=== PATIENT | female | born 1990 | race Asian ===

== ENCOUNTER → 2019-09-25 11:58 | Outpatient (CLI) | payer OTHER, SELFPAY ==
[2019-09-25 13:32] LABS: Add Manual Diff / Slide Review NO; Basophils Absolute Auto 0 /uL (0-100); Basophils Percent Auto 0.4 % (0-2); Eosinophils Absolute Auto 200 /uL (0-450); Eosinophils Percent Auto 1.9 % (2-4); Hematocrit 37.9 % (36-46); Hemoglobin 13.1 g/dL (12.0-16.0); Lymphocytes Absolute Auto 1600 /uL (1100-4500); Lymphocytes Percent Auto 19.2 % (25-40); Mean Corpuscular HGB Conc 34.6 % (30-36); Mean Corpuscular Hemoglobin 30.6 PG (26-34); Mean Corpuscular Volume 88.6 fL (80-100); Monocytes Absolute Auto 500 /uL (0-900); Neutrophils Absolute Auto 6000 /uL (1500-7000); Neutrophils Percent Auto 72.5 % (50-75); Platelet Count 213 X10^3/uL (150-400); Red Blood Cell Count 4.28 X10^6/uL (4.0-5.2); Red Cell Distribution Width 13.2 % (11.6-14.8); White Blood Cell Count 8.3 X10^3/uL (4.5-11.0)
[2019-09-26 06:12] LABS: RPR Screen Non Reactive (Non Reactive)
[2019-09-26 11:09] LABS: Varicella IgG Antibody 554 index (Immune >165)
[2019-09-26 18:34] LABS: HIV 1 & 2 Ab/Ag 4th Gen Combo NEGATIVE (NEGATIVE); Hep C Virus Ab w/Reflex Quant NEGATIVE s/c (NEGATIVE); Hepatitis B Surface Antigen NEGATIVE s/c (NEGATIVE); Rubella Antibody IgG 44.6 IU/mL (>15)
== END ==
PROVIDERS: PCP Family Medicine; Referring Provider Obstetrics & Gynecology; Visit Provider Obstetrics & Gynecology
DX: Z34.81 Encounter for supervision of other normal pregnancy, first trimester (principal); Z36.0 Encounter for antenatal screening for chromosomal anomalies; Z3A.11 11 weeks gestation of pregnancy
CPT/HCPCS: 36415; 80055; 84163; 84702; 86787; 86803; 86850; 86900; 86901; 87389

== ENCOUNTER → 2019-10-30 14:39 | Outpatient (CLI) | payer OTHER, SELFPAY ==
[2019-10-30 16:37] LABS: Appearance Urine UA CLEAR; Bilirubin Urine UA NEGATIVE (NEGATIVE); Color Urine UA YELLOW; Glucose Urine UA NEGATIVE (Negative); Ketones Urine UA NEGATIVE (NEGATIVE); Leukocyte Esterase Urine UA NEGATIVE (NEGATIVE); Nitrite Urine UA NEGATIVE (Negative); Occult Blood Urine UA NEGATIVE (Negative); Protein Urine UA NEGATIVE (Negative); Urobilinogen Urine UA 0.2 E.U./dL (0.2)
[2019-10-30 16:38] LABS: pH Urine UA 7.5 (4.5-8.0)
[2019-11-18 20:30] LABS: Sequential Screen 2nd Trimeste SEE SEPARATE REPORT
== END ==
PROVIDERS: PCP Family Medicine; Referring Provider Obstetrics & Gynecology; Visit Provider Obstetrics & Gynecology
DX: Z34.91 Encounter for supervision of normal pregnancy, unspecified, first trimester (principal); Z34.82 Encounter for supervision of other normal pregnancy, second trimester; Z3A.16 16 weeks gestation of pregnancy
CPT/HCPCS: 36415; 81003; 82105; 82677; 84163; 84702; 86336; 87086

== ENCOUNTER → 2019-11-27 12:17 | Outpatient (CLI) | payer OTHER, SELFPAY ==
--- NOTE | 2019-11-27 12:18 | DI.US.S_ITS ---
PROCEDURE: US OB >= 14 WEEKS FETUS INDICATIONS: ANATOMY OUTSIDE/PRIOR DATING DATA: Last menstrual period (LMP): 07/09/19. LMP-based estimated date of delivery (KATIANA): 04/14/20 . First dating scan (date and location): 08/28/19 . Estimated date of delivery (KATIANA) from first dating scan: 04/12/20 . TECHNIQUE: Real-time scanning was performed of the fetus, with image documentation and biometric measurements. Endovaginal scanning: Not needed COMPARISON: None. FINDINGS: General: A single living intrauterine gestation is present. Presentation: Transverse head left, converting to breech.. Placenta: Placental position is anterior , without previa. Amniotic fluid index: 17.4 cm, normal range is 5-24 cm. heart rate: 145 beats per minute. Maternal cervical canal: 4.1 cm long. Normal lower limit is 2.5 cm. biometrics: Biparietal diameter: 4.5 cm, 19 weeks 4 days Head circumference: 17.2 cm, 19 weeks 5 days Abdominal circumference: 15.4 cm, 20 weeks 4 days Femur length: 3.3 cm, 20 weeks 1 day Estimated gestational age from initial scan: 20 weeks 3 days Composite gestational age from present scan: 20 weeks 0 days Estimated weight and percentile: 346 g, 39th percentile Measurement variability for biometric dating: +/- 7 days from 14 weeks to 15 weeks 6 days gestation, +/- 10 days from 16 weeks to 21 weeks 6 days gestation, +/- 2 weeks from 22 weeks to 27 weeks 6 days gestation, +/- 3 weeks for 28 weeks gestation or later. weight reference: 4500 g or EFW >90/95% is considered macrosomia or large for gestational age. EFW <10% is small for gestational age. EFW 5% or less is considered intra-uterine growth restriction. Anatomic survey: Neuro: Ventricles are non-dilated at less than 10 mm. Cisterna magna is normal at 3-11 mm. Cerebellum is normal in size and morphology. Nuchal skin fold: Normal at less than 6 mm between 14-21 weeks gestational age. Face: Nose and lips, facial profile are normal. Spine: No evidence for spina bifida. Heart: 4-chambered heart is present, with normal ventricular outflow tracts. Diaphragm: Diaphragm is intact. Stomach: Left-sided stomach is present. Kidneys: No hydronephrosis. Normal is less than 5 mm in 2nd trimester, less than 7 mm in 3rd trimester. Cord: 3-vessel cord has orthotopic insertion. Bladder: Normal in size. Extremities: All 4 extremities identified. IMPRESSION: 20 week 0 days gestational age, appropriate interval growth, no anomaly seen, delivery date projected to be centered on 04/12/20. Dictated by: Antione Roger M.D. on 11/27/2019 at 15:10 Approved by: Antione Roger M.D. on 11/27/2019 at 15:13
== END ==
PROVIDERS: PCP Family Medicine; Referring Provider Obstetrics & Gynecology; Visit Provider Obstetrics & Gynecology
DX: Z34.82 Encounter for supervision of other normal pregnancy, second trimester (principal); Z3A.20 20 weeks gestation of pregnancy
CPT/HCPCS: 76811

== ENCOUNTER → 2020-01-08 12:20 | Outpatient (CLI) | payer OTHER, SELFPAY ==
[2020-01-08 14:28] LABS: Hematocrit 32.9 % (36-46); Hemoglobin 11.1 g/dL (12.0-16.0)
[2020-01-08 14:57] LABS: GTT (PREG) 1 Hour PP 50gm Dose 130 mg/dL (76-139)
== END ==
PROVIDERS: PCP Family Medicine; Referring Provider Obstetrics & Gynecology; Visit Provider Obstetrics & Gynecology
DX: Z34.82 Encounter for supervision of other normal pregnancy, second trimester (principal)
CPT/HCPCS: 36415; 82950; 85014; 85018

== ENCOUNTER → 2020-02-01 13:36 | Outpatient (CLI) | payer OTHER, SELFPAY ==
[2020-02-02 04:08] LABS: Hepatitis B Surf AB Quant >1000.0 mIU/mL (Immunity>9.9)
== END ==
PROVIDERS: PCP Family Medicine; Referring Provider Family Medicine; Visit Provider Family Medicine
DX: Z01.84 Encounter for antibody response examination (principal)
CPT/HCPCS: 36415; 86706

== ENCOUNTER 2020-03-15 18:01 | Outpatient (CLI) | payer OTHER, SELFPAY | END 2020-03-15 18:50 | disposition home or self-care (01) | LOC: LABOR 18:45 → OB 03-17 08:46 | PROVIDERS: PCP Family Medicine; Referring Provider Obstetrics & Gynecology; Visit Provider Obstetrics & Gynecology | DX: O47.03 False labor before 37 completed weeks of gestation, third trimester (principal); Z3A.35 35 weeks gestation of pregnancy | CPT/HCPCS: 59025; G0378; G0379 ==

== ENCOUNTER → 2020-03-18 15:21 | Outpatient (CLI) | payer OTHER, SELFPAY ==
[2020-03-19 15:44] LABS: Strep Grp B PCR NEG for Grp B Strep
== END ==
PROVIDERS: PCP Family Medicine; Visit Provider Obstetrics & Gynecology
DX: Z34.83 Encounter for supervision of other normal pregnancy, third trimester (principal); Z3A.36 36 weeks gestation of pregnancy
CPT/HCPCS: 87653

== ENCOUNTER 2020-04-10 06:35 | Inpatient (IN) | payer OTHER, SELFPAY ==
[2020-04-10] MEDS: LACTATED RINGERS 1,000 ML 100 ML IV (07:00)
[2020-04-10] MEDS: fentaNYL 100 MCG/2 ML INJ (07:10)
[2020-04-10 07:15] LABS: Add Manual Diff / Slide Review NO; Basophils Absolute Auto 0 /uL (0-100); Basophils Percent Auto 0.4 % (0-2); Eosinophils Absolute Auto 100 /uL (0-450); Eosinophils Percent Auto 0.7 % (2-4); Hematocrit 38.6 % (36-46); Hemoglobin 12.7 g/dL (12.0-16.0); Lymphocytes Absolute Auto 1300 /uL (1100-4500); Lymphocytes Percent Auto 10.2 % (25-40); Mean Corpuscular HGB Conc 32.8 % (30-36); Mean Corpuscular Hemoglobin 29.4 PG (26-34); Mean Corpuscular Volume 89.6 fL (80-100); Monocytes Absolute Auto 1000 /uL (0-900); Monocytes Percent Auto 7.5 % (3-14); Neutrophils Absolute Auto 10800 /uL (1500-7000); Neutrophils Percent Auto 81.2 % (50-75); Platelet Count 190 X10^3/uL (150-400); Red Blood Cell Count 4.31 X10^6/uL (4.0-5.2); Red Cell Distribution Width 13.5 % (11.6-14.8); White Blood Cell Count 13.2 X10^3/uL (4.5-11.0)
[2020-04-10 07:22] LABS: COVID19 -Nasal RAPID Negative (Negative)
[2020-04-10 09:14] VITALS: BP 106/60
--- NOTE | 2020-04-10 10:00 | PM.OBHP.1 ---
OB HPI Date/Time Date of admission: 04/10/20 Date Patient Seen: 04/10/20 Time Patient Seen: 08:40 History of Present Condition Chief complaint: LABOR : 2 Para: 1 Estimated Date of Delivery: 04/14/20 Estimated Gestational Age (weeks): 39.3 Narrative: Meaghan Ortega is a 29 year old female @ 39wks 2 days by LMP and early US who presents for evaluation of labor. Was graham all night, but able to sleep until they became strong at 0300. Now breathing through strong contractions Q3-5 minutes and having some bloody show. Noticed leaking of fluid @ [address] here. +FM. History of Present care: good care, initiated at week # (11), number of visits (11) and pounds weight gain (33) Dating criteria: LMP confirmed by 1st trimester US Ultrasounds: normal mid trimester US Obstetrical complications: none Preadmission Labs Blood type: AB (+) positive -: Antibody screen: negative, GBS status: negative, HBsAG: negative, HIV: negative and RPR/VDLR: negative -: Rubella: immune and Varicella: immune HCT: 38.6 HCAB: negative Sequential screen: Negative/normal 1 hr GTT: 130 Prior (ies) History: 10/05/12: VAVB @ 39.6, 24hr labor, female, 5#9oz, epidural, no complications Evaluation Evaluation Baseline heart rate: 130 Variability: Average (6-10) monitor accelerations: Present monitor decelerations: Absent Contraction Frequency (minutes): 4 Uterine Contraction Intensity: Moderate Category of Tracing: Reactive Status: Category l Cervical dilation (cm): 3 Cervical effacement (%): 80 station: 0 Laboratory results: Laboratory Tests 04/10/20 04/10/20 04/10/20 07:00 07:00 07:00 WBC 13.2 H RBC 4.31 Hgb 12.7 Hct 38.6 MCV 89.6 MCH 29.4 MCHC 32.8 RDW 13.5 Plt Count 190 Neut % (Auto) 81.2 H Lymph % (Auto) 10.2 L [place] % (Auto) 7.5 Eos % (Auto) 0.7 L Baso % (Auto) 0.4 Neut # (Auto) 66149 H Lymph # (Auto) 1300 [place] # (Auto) 1000 H Eos # (Auto) 100 Baso # (Auto) 0 SARS-CoV-2 (PCR) Negative Blood Type AB Positive Antibody Screen Negative Comments: Gross ROM PFSH Medical History Abnormal Pap smear of cervix Anxiety HPV (human papilloma virus) infection Left axillary pain (spontaneous vaginal delivery) (~10/05/12) Surgical History H/O colposcopy with cervical biopsy (~2016) [place] teeth extracted (~2010) Family History Mother Diabetes mellitus Hypertension Alcoholism Psoriasis Father Hyperlipidemia Grandfather Unknown whether patient has any health problems Family estrangement Grandmother Unknown whether patient has any health problems Family estrangement Grandmother Cancer Lung cancer Grandfather Family estrangement Unknown whether patient has any health problems Social History marital status: number of children: 1 household members: spouse and children pets and animals: Yes (X 3 dogs) education level: high school ([employer] for [employer] ) occupational status: employed 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 Smoking Status: Never smoker second hand exposure: No alcohol intake: former (pre- : social ) substance use type: does not use Meds Home Medications and Allergies Home Medications Medication Instructions Recorded Confirmed Type prenat.vits,kimberlee,[id number] 1 tab PO DAILY #90 tab 11/09/19 Rx Allergies Allergy/AdvReac Type Severity Reaction Status Date / Time No Known Allergies Allergy Uncoded 09/22/19 13:04 Review of Systems Review of Systems ROS: Yes All systems reviewed with the patient and are negative except as otherwise documented Exam Vital Signs (past 8 hours): - 04/10/20 09:14 Blood Pressure 106/60 HR-79bpm, T36.2C Temporal Resp Effort & Inspection: normal respiratory effort Auscultation: clear to auscultation bilaterally Cardio Rate: regular rate Rhythm: regular rhythm Heart Sounds: S1 normal and S2 normal Objective Labs Result Diagrams: 04/10/20 07:00 Labs: Laboratory Results - last 24 hr 04/10/20 04/10/20 04/10/20 07:00 07:00 07:00 WBC 13.2 H RBC 4.31 Hgb 12.7 Hct 38.6 MCV 89.6 MCH 29.4 MCHC 32.8 RDW 13.5 Plt Count 190 Neut % (Auto) 81.2 H Lymph % (Auto) 10.2 L [place] % (Auto) 7.5 Eos % (Auto) 0.7 L Baso % (Auto) 0.4 Neut # (Auto) 38638 H Lymph # (Auto) 1300 [place] # (Auto) 1000 H Eos # (Auto) 100 Baso # (Auto) 0 SARS-CoV-2 (PCR) Negative Blood Type AB Positive Antibody Screen Negative Assessment and Plan Assessment and Plan Assessment and Plan narrative: A: Term Primipara Active labor SROM x 2 hours without sx of infection No indication for GBS prophylaxis Cat I FHR P: Admit, routine orders. Epidural when requested. Labor support PRN. Will manage labor, then call [facility] for . Time Spent with Patient Total time spent with greater than 50% in coordination of care (as documented) at patient's floor/unit and/or counseling patient:: 15-24 minutes
[2020-04-10] MEDS: ONDANSETRON 4 MG/2 ML INJ IV (11:50)
--- NOTE | 2020-04-10 14:40 | PM.OBPRVD ---
Labor & Delivery Delivery date: 04/10/20 Intrapartal Events: None Cervical ripening method: none Induction method: none Delivery monitor: external FHT and external uterine Route of delivery: (With a mild shoulder dystocia) Episiotomy description: None L&D Laceration Description: None Estimated blood loss (mL): 150 Anesthesia Type: Epidural Complications: Mild shoulder dystocia Narrative: Patient complete and pushed times 48 minutes. At 1423, a live female delivered spontaneously in the KIAN presentation. There was a mild shoulder dystocia that was relieved by placing the patient flat on her back and using Ailyn maneuver. After the shoulders delivered, the infant was placed on mom's abdomen. The cord was double clamped and cut after the cord stopped pulsing. Cord bloods were obtained. Pitocin 10 units was given IM. The placenta delivered intact with a three-vessel cord at 2:28 p.m.. Fundus was massaged to firm. No lacerations were noted. Apgars 9 at 1 minute and 9 at 5 minutes. . Epidural analgesia. Mom and infant stable to recovery. [place] Baby 1: gender: Female Presentation: vertex Position: Right Occiput Anterior Placenta delivery description: Spontaneous Cord Vessel Description: 3 Vessels score (1 min): 9 score (5 min): 9 Plan for aftercare: Routine care
[2020-04-10] MEDS: ACETAMINOPHEN 325 MG TABLET 650 MG PO (19:47)
[2020-04-10] MEDS: IBUPROFEN 600 MG TABLET PO (19:47)
[2020-04-11 06:36] LABS: Hematocrit 34.3 % (36-46); Hemoglobin 11.5 g/dL (12.0-16.0)
--- NOTE | 2020-04-13 17:47 | PM.OBDS.1 ---
Discharge Providers Provider Date of admission: 04/10/20 06:35 Discharge Date: 04/11/20 Primary care physician: Madeline Drake DO Discharge provider: Cherise Mary MD Summary Hospital Course Date Patient Seen: 04/11/20 Time Patient Seen: 07:45 Diagnoses: Thirty-nine weeks gestation Spontaneous vaginal delivery Epidural analgesia Hospital Course: Patient presented in active labor. Artificial rupture membranes was performed. She received an epidural for pain management. She progressed to complete dilation and had a spontaneous vaginal delivery without complication or lacerations. Her course was unremarkable and she was discharged home on day # 1. Peripartum Data Infant Delivery Method: Natural Vaginal Laceration Description: None Episiotomy description: None Procedures: Spontaneous vaginal delivery Artificial rupture of membranes Epidural analgesia complications: none 1: Gender: Female Disposition of : home Status at Discharge Cognitive/behavioral status at discharge: oriented Functional status at discharge: independent ambulation Overall status at discharge: patient is progressing back to baseline Time Spent with Patient Time attestation: Total time spent providing and/or coordinating discharge services: Time spent: Less than 30 minutes Objective Labs Result Diagrams: 04/11/20 06:25 Exam Vital Signs (past 8 hours): Generally: Patient is sitting up in bed, holding infant, no acute distress Lungs: Clear to auscultation bilaterally Cardiovascular: Regular rate and rhythm Fundus: Firm at U -1 Extremities: Negative Homans, no edema Discharge Plan Discharge Plan Patient Disposition: Home Provider Discharge Comment: Call with fever, chills, or bleeding vaginally more than a pad in an hour Ibuprofen 600 mg every 6 hours as needed for cramping Tylenol 650 mg every 6 hours as needed Push oral fluids Discharge orders & Medications Prescriptions: Continued prenat.vits,kimberlee,vmn-wgyf-fgnto Tablet 1 tab PO DAILY Qty: 90 RF: 3 Follow up/Referrals: Lina Monaco MD [Physician] - 6 Weeks (May 24, at 3pm with Dr Monaco) Diet/Activity/Treatments Diet: Regular Activity: Nothing in the vagina for 6 weeks Skin/Wound/Dressing Care Report to your healthcare provider any signs of infection, such as:: chills, fever, increased pain and unusual drainage Visit Report/Discharge Packet Instructions: DI for Labor and Delivery, Vaginal Stand Alone Forms: Discharge: Care Discharge Data Primary Care Provider: Madeline Drake
== END 2020-04-11 14:20 | disposition home or self-care (01) | DRG 807 ==
PROVIDERS: Obstetrics & Gynecology; Admitting Provider Nurse Practitioner Obstetrics & Gynecology; PCP Family Medicine; Referring Provider Nurse Practitioner Obstetrics & Gynecology; Visit Provider Nurse Practitioner Obstetrics & Gynecology
DX: O42.02 Full-term premature rupture of membranes, onset of labor within 24 hours of rupture (principal); Z37.0 Single live birth; O66.0 Obstructed labor due to shoulder dystocia; Z3A.39 39 weeks gestation of pregnancy; Z20.822 Contact with and (suspected) exposure to COVID-19
CPT/HCPCS: 01967; 36415; 59050; 59400; 59409; 85014; 85018; 85025; 86850; 86900; 86901; 87635; C9803; G0379; J2405; J3010

== ENCOUNTER → 2020-11-04 09:26 | Outpatient (CLI) | payer OTHER, SELFPAY ==
[2020-11-09 12:11] LABS: QuantiFERON Mitogen Value >10.00 IU/mL (.); QuantiFERON Nil Value 0.21 IU/mL (.); QuantiFERON TB Gold Plus Positive (Negative); QuantiFERON TB1 Ag Value 1.22 IU/mL (.); QuantiFERON TB2 Ag Value 1.42 IU/mL (.)
== END ==
PROVIDERS: PCP Family Medicine; Referring Provider Family Medicine; Visit Provider Family Medicine
DX: R76.11 Nonspecific reaction to tuberculin skin test without active tuberculosis (principal)
CPT/HCPCS: 36415; 86480

== ENCOUNTER → 2020-11-07 16:56 | Outpatient (CLI) | payer OTHER, SELFPAY ==
--- NOTE | 2020-11-07 16:59 | DI.RAD.S_ITS ---
PROCEDURE: XR CHEST 2V INDICATIONS: positive TB skin test TECHNIQUE: 2 views of the chest were acquired. COMPARISON: None. FINDINGS: Surgical changes and devices: None. Lungs and pleura: Lungs are clear. No pleural effusions or pneumothorax. Mediastinum: Mediastinal contours are normal. Heart size is normal. Bones and chest wall: No suspicious bony abnormalities. Soft tissues appear unremarkable. IMPRESSION: Normal examination. Dictated by: Graciela Sparks MD, PhD on 11/08/2020 at 12:05 Approved by: Graciela Sparks MD, PhD on 11/08/2020 at 12:05
== END ==
PROVIDERS: PCP Family Medicine; Referring Provider Family Medicine; Visit Provider Family Medicine
DX: R76.11 Nonspecific reaction to tuberculin skin test without active tuberculosis (principal)
CPT/HCPCS: 71046

== ENCOUNTER → 2021-01-20 07:18 | Outpatient (CLI) | payer OTHER, SELFPAY ==
[2021-01-20 08:19] LABS: Add Manual Diff / Slide Review NO; Basophils Absolute Auto 100 /uL (0-100); Basophils Percent Auto 0.9 % (0-2); Eosinophils Absolute Auto 200 /uL (0-450); Eosinophils Percent Auto 3.4 % (2-4); Hematocrit 39.9 % (36-46); Hemoglobin 13.8 g/dL (12.0-16.0); Lymphocytes Absolute Auto 1400 /uL (1100-4500); Lymphocytes Percent Auto 24.8 % (25-40); Mean Corpuscular HGB Conc 34.5 % (30-36); Mean Corpuscular Hemoglobin 30.2 PG (26-34); Mean Corpuscular Volume 87.5 fL (80-100); Monocytes Absolute Auto 400 /uL (0-900); Monocytes Percent Auto 6.2 % (3-14); Neutrophils Absolute Auto 3700 /uL (1500-7000); Neutrophils Percent Auto 64.7 % (50-75); Platelet Count 241 X10^3/uL (150-400); Red Blood Cell Count 4.56 X10^6/uL (4.0-5.2); Red Cell Distribution Width 12.6 % (11.6-14.8); White Blood Cell Count 5.8 X10^3/uL (4.5-11.0)
[2021-01-20 08:46] LABS: Alanine Aminotransferase 13 IU/L (<35); Albumin 4.3 g/dL (3.5-5.0); Albumin Globulin Ratio 1.5 (1.0-2.8); Alkaline Phosphatase 50 U/L (38-126); Aspartate Aminotransferase 19 IU/L (14-36); BUN Creatinine Ratio 13.3 (6-22); Bilirubin Total 0.4 mg/dL (0.2-1.3); Blood Urea Nitrogen 8 mg/dL (7-17); Calcium 9.3 mg/dL (8.4-10.2); Carbon Dioxide 25 mmol/L (22-32); Chloride 104 mmol/L (98-107); Estimated Glomerular Filt Rate > 60.0 mL/min (>60); Globulin 2.8 g/dL (1.7-4.1); Glucose 93 mg/dL (70-100); HEMOLYSIS < 15 (0-50); Potassium 4.3 mmol/L (3.4-5.1); Sodium 138 mmol/L (137-145); Total Protein 7.1 g/dL (6.3-8.2)
== END ==
PROVIDERS: PCP Family Medicine; Referring Provider Family Medicine; Visit Provider Family Medicine
DX: R76.11 Nonspecific reaction to tuberculin skin test without active tuberculosis (principal); Z79.899 Other long term (current) drug therapy
CPT/HCPCS: 36415; 80053; 85025

== ENCOUNTER → 2021-01-27 13:22 | Outpatient (CLI) | payer OTHER, SELFPAY ==
[2021-02-01 19:15] LABS: Calprotectin, Stool 30 ug/g (0-120)
== END ==
PROVIDERS: PCP Family Medicine; Referring Provider Family Medicine; Visit Provider Family Medicine
DX: K60.2 Anal fissure, unspecified (principal)
CPT/HCPCS: 83993

== ENCOUNTER → 2021-02-17 15:49 | Outpatient (CLI) | payer OTHER, SELFPAY ==
[2021-02-17 17:11] LABS: Alanine Aminotransferase 14 IU/L (<35); Albumin 4.4 g/dL (3.5-5.0); Albumin Globulin Ratio 1.5 (1.0-2.8); Alkaline Phosphatase 52 U/L (38-126); Aspartate Aminotransferase 20 IU/L (14-36); Bilirubin Total 0.3 mg/dL (0.2-1.3); Blood Urea Nitrogen 7 mg/dL (7-17); Calcium 9.5 mg/dL (8.4-10.2); Carbon Dioxide 29 mmol/L (22-32); Chloride 104 mmol/L (98-107); Estimated Glomerular Filt Rate > 60.0 mL/min (>60); Glucose 112 mg/dL (70-100); HEMOLYSIS < 15 (0-50); Sodium 138 mmol/L (137-145); Total Protein 7.4 g/dL (6.3-8.2)
== END ==
PROVIDERS: PCP Family Medicine; Referring Provider Family Medicine; Visit Provider Family Medicine
DX: R76.12 Nonspecific reaction to cell mediated immunity measurement of gamma interferon antigen response without active tuberculosis (principal)
CPT/HCPCS: 36415; 80053

== ENCOUNTER → 2021-03-13 16:04 | Outpatient (CLI) | payer OTHER, SELFPAY ==
[2021-03-13 16:47] LABS: Add Manual Diff / Slide Review NO; Basophils Absolute Auto 0 /uL (0-100); Eosinophils Absolute Auto 200 /uL (0-450); Eosinophils Percent Auto 6.2 % (2-4); Hematocrit 36.1 % (36-46); Hemoglobin 12.5 g/dL (12.0-16.0); Lymphocytes Absolute Auto 1300 /uL (1100-4500); Lymphocytes Percent Auto 34.6 % (25-40); Mean Corpuscular HGB Conc 34.5 % (30-36); Mean Corpuscular Volume 86.9 fL (80-100); Monocytes Absolute Auto 500 /uL (0-900); Monocytes Percent Auto 13.1 % (3-14); Neutrophils Absolute Auto 1700 /uL (1500-7000); Neutrophils Percent Auto 45.1 % (50-75); Platelet Count 182 X10^3/uL (150-400); Red Blood Cell Count 4.15 X10^6/uL (4.0-5.2); Red Cell Distribution Width 13.1 % (11.6-14.8); White Blood Cell Count 3.7 X10^3/uL (4.5-11.0)
[2021-03-13 18:05] LABS: Alanine Aminotransferase 12 IU/L (<35); Albumin 3.5 g/dL (3.5-5.0); Albumin Globulin Ratio 1.3 (1.0-2.8); Alkaline Phosphatase 39 U/L (38-126); Aspartate Aminotransferase 20 IU/L (14-36); BUN Creatinine Ratio 14.3 (6-22); Bilirubin Total 0.2 mg/dL (0.2-1.3); Blood Urea Nitrogen 8 mg/dL (7-17); Calcium 8.6 mg/dL (8.4-10.2); Carbon Dioxide 31 mmol/L (22-32); Chloride 104 mmol/L (98-107); Estimated Glomerular Filt Rate > 60.0 mL/min (>60); Globulin 2.7 g/dL (1.7-4.1); Glucose 84 mg/dL (70-100); HEMOLYSIS < 15 (0-50); Potassium 3.6 mmol/L (3.4-5.1); Sodium 137 mmol/L (137-145); Total Protein 6.2 g/dL (6.3-8.2)
== END ==
PROVIDERS: PCP Family Medicine; Referring Provider Family Medicine; Visit Provider Family Medicine
DX: R76.12 Nonspecific reaction to cell mediated immunity measurement of gamma interferon antigen response without active tuberculosis (principal); Z79.899 Other long term (current) drug therapy
CPT/HCPCS: 36415; 80053; 85025

== ENCOUNTER → 2021-03-25 09:44 | Outpatient (CLI) | payer OTHER, SELFPAY ==
[2021-03-25 13:08] LABS: Add Manual Diff / Slide Review NO; Basophils Absolute Auto 0 /uL (0-100); Basophils Percent Auto 0.8 % (0-2); Eosinophils Absolute Auto 200 /uL (0-450); Eosinophils Percent Auto 3.3 % (2-4); Hematocrit 38.2 % (36-46); Hemoglobin 13.1 g/dL (12.0-16.0); Lymphocytes Absolute Auto 1500 /uL (1100-4500); Lymphocytes Percent Auto 24.4 % (25-40); Mean Corpuscular HGB Conc 34.3 % (30-36); Mean Corpuscular Volume 87.4 fL (80-100); Monocytes Absolute Auto 600 /uL (0-900); Monocytes Percent Auto 9.4 % (3-14); Neutrophils Absolute Auto 3900 /uL (1500-7000); Neutrophils Percent Auto 62.1 % (50-75); Platelet Count 246 X10^3/uL (150-400); Red Blood Cell Count 4.37 X10^6/uL (4.0-5.2); Red Cell Distribution Width 13.1 % (11.6-14.8); White Blood Cell Count 6.3 X10^3/uL (4.5-11.0)
[2021-03-25 13:30] LABS: Alanine Aminotransferase 14 IU/L (<35); Albumin 4.1 g/dL (3.5-5.0); Albumin Globulin Ratio 1.5 (1.0-2.8); Alkaline Phosphatase 53 U/L (38-126); Aspartate Aminotransferase 19 IU/L (14-36); Bilirubin Total 0.9 mg/dL (0.2-1.3); Bilirubin Unconjugated 1.1 mg/dL (0.0-1.1); Globulin 2.8 g/dL (1.7-4.1); HEMOLYSIS < 15 (0-50); Total Protein 6.9 g/dL (6.3-8.2)
== END ==
PROVIDERS: PCP Family Medicine; Referring Provider Family Medicine; Visit Provider Family Medicine
DX: Z79.899 Other long term (current) drug therapy (principal); D72.819 Decreased white blood cell count, unspecified; R76.12 Nonspecific reaction to cell mediated immunity measurement of gamma interferon antigen response without active tuberculosis
CPT/HCPCS: 36415; 80076; 85025

== ENCOUNTER → 2021-04-29 11:52 | Outpatient (CLI) | payer OTHER, SELFPAY ==
[2021-04-29 12:27] LABS: Add Manual Diff / Slide Review NO; Basophils Absolute Auto 0 /uL (0-100); Basophils Percent Auto 0.6 % (0-2); Eosinophils Absolute Auto 200 /uL (0-450); Eosinophils Percent Auto 2.9 % (2-4); Hematocrit 38.7 % (36-46); Hemoglobin 13.3 g/dL (12.0-16.0); Lymphocytes Absolute Auto 2000 /uL (1100-4500); Lymphocytes Percent Auto 25.5 % (25-40); Mean Corpuscular HGB Conc 34.4 % (30-36); Mean Corpuscular Hemoglobin 29.9 PG (26-34); Mean Corpuscular Volume 86.8 fL (80-100); Monocytes Absolute Auto 600 /uL (0-900); Monocytes Percent Auto 7.8 % (3-14); Neutrophils Absolute Auto 4900 /uL (1500-7000); Neutrophils Percent Auto 63.2 % (50-75); Platelet Count 222 X10^3/uL (150-400); Red Blood Cell Count 4.46 X10^6/uL (4.0-5.2); White Blood Cell Count 7.7 X10^3/uL (4.5-11.0)
[2021-04-29 13:09] LABS: Alanine Aminotransferase 15 IU/L (<35); Albumin 4.3 g/dL (3.5-5.0); Albumin Globulin Ratio 1.4 (1.0-2.8); Alkaline Phosphatase 55 U/L (38-126); Aspartate Aminotransferase 20 IU/L (14-36); Bilirubin Total 0.5 mg/dL (0.2-1.3); Bilirubin Unconjugated 0.5 mg/dL (0.0-1.1); HEMOLYSIS < 15 (0-50); Total Protein 7.3 g/dL (6.3-8.2)
== END ==
PROVIDERS: PCP Family Medicine; Referring Provider Family Medicine; Visit Provider Family Medicine
DX: D72.819 Decreased white blood cell count, unspecified (principal); Z79.899 Other long term (current) drug therapy; R76.12 Nonspecific reaction to cell mediated immunity measurement of gamma interferon antigen response without active tuberculosis
CPT/HCPCS: 36415; 80076; 85025

== ENCOUNTER → 2021-05-31 12:54 | Outpatient (CLI) | payer OTHER, SELFPAY ==
[2021-05-31 14:53] LABS: Free T3, Triiodothyronine Free 3.28 pg/mL (2.77-5.27); Free T4, Direct Thyroxine 0.85 ng/dL (0.78-2.19)
[2021-05-31 15:07] LABS: Thyroid Stimulating Hormone 1.91 uIU/mL (0.47-4.68)
== END ==
PROVIDERS: PCP Family Medicine; Referring Provider Nurse Practitioner; Visit Provider Nurse Practitioner
DX: F41.8 Other specified anxiety disorders (principal); R00.2 Palpitations; L29.0 Pruritus ani
CPT/HCPCS: 36415; 84439; 84443; 84481; 99213

== ENCOUNTER → 2022-05-10 09:00 | Outpatient (CLI) | payer OTHER, SELFPAY ==
[2022-05-10 11:41] LABS: Add Manual Diff / Slide Review NO; Basophils Absolute Auto 100 /uL (0-100); Basophils Percent Auto 1.2 % (0-2); Eosinophils Absolute Auto 200 /uL (0-450); Eosinophils Percent Auto 3.3 % (2-4); Hematocrit 39.5 % (36-46); Hemoglobin 13.2 g/dL (12.0-16.0); Lymphocytes Absolute Auto 1600 /uL (1100-4500); Lymphocytes Percent Auto 26.9 % (25-40); Mean Corpuscular HGB Conc 33.5 % (30-36); Mean Corpuscular Hemoglobin 29.5 PG (26-34); Mean Corpuscular Volume 87.9 fL (80-100); Monocytes Absolute Auto 500 /uL (0-900); Neutrophils Absolute Auto 3600 /uL (1500-7000); Neutrophils Percent Auto 60.6 % (50-75); Platelet Count 232 X10^3/uL (150-400); Red Blood Cell Count 4.49 X10^6/uL (4.0-5.2); Red Cell Distribution Width 12.8 % (11.6-14.8); White Blood Cell Count 5.9 X10^3/uL (4.5-11.0)
[2022-05-10 11:55] LABS: Alanine Aminotransferase 15 IU/L (<35); Albumin 4.4 g/dL (3.5-5.0); Albumin Globulin Ratio 1.4 (1.0-2.8); Alkaline Phosphatase 51 U/L (38-126); Aspartate Aminotransferase 20 IU/L (14-36); BUN Creatinine Ratio 22.2 (6-22); Bilirubin Total 0.4 mg/dL (0.2-1.3); Blood Urea Nitrogen 12 mg/dL (7-17); Carbon Dioxide 27 mmol/L (22-32); Chloride 102 mmol/L (98-107); Estimated Glomerular Filt Rate > 60 mL/min (>60); Globulin 3.1 g/dL (1.7-4.1); Glucose 73 mg/dL (70-100); HEMOLYSIS < 15 (0-50); Potassium 4.5 mmol/L (3.4-5.1); Sodium 138 mmol/L (137-145); Total Protein 7.5 g/dL (6.3-8.2)
[2022-05-10 12:39] LABS: Thyroid Stimulating Hormone 0.253 uIU/mL (0.47-4.68)
== END ==
PROVIDERS: PCP Nurse Practitioner; Referring Provider Surgery; Visit Provider Surgery
DX: L29.0 Pruritus ani (principal)
CPT/HCPCS: 36415; 80053; 84443; 85025

== ENCOUNTER → 2022-05-15 11:27 | Outpatient (CLI) | payer OTHER, SELFPAY | PROVIDERS: PCP Nurse Practitioner; Referring Provider Surgery; Visit Provider Surgery | DX: L29.0 Pruritus ani (principal) | CPT/HCPCS: 87177 ==

== ENCOUNTER → 2022-05-22 09:15 | Outpatient (CLI) | payer OTHER, SELFPAY ==
[2022-05-22 10:12] LABS: Cholesterol 133 mg/dL (140-199); HDL Cholesterol 37 mg/dL (40-60); LDL Cholesterol Calculated 79 mg/dL (<100); Triglycerides 86 mg/dL (35-150)
[2022-05-22 10:26] LABS: Free T3, Triiodothyronine Free 3.17 pg/mL (2.77-5.27); Free T4, Direct Thyroxine 0.89 ng/dL (0.78-2.19)
[2022-05-22 10:40] LABS: Thyroid Stimulating Hormone 1.19 uIU/mL (0.47-4.68)
== END ==
PROVIDERS: PCP Nurse Practitioner; Referring Provider Nurse Practitioner; Visit Provider Nurse Practitioner
DX: Z00.00 Encounter for general adult medical examination without abnormal findings (principal); R79.89 Other specified abnormal findings of blood chemistry
CPT/HCPCS: 36415; 80061; 84439; 84443; 84481

== ENCOUNTER 2022-05-31 09:05 | Day surgery (SDC) | payer OTHER, SELFPAY ==
[2022-05-31] MEDS: LACTATED RINGERS 1,000 ML 84 ML IV (09:22)
[2022-05-31 09:25] VITALS: BP 104/62; PULSE 69; RESP 20; TEMP 36.8; O2SAT 99; BMI 22.1
--- NOTE | 2022-05-31 10:10 | PM.HP.1 ---
History of Present Illness History of Present Illness Date Patient Seen: 05/31/22 Time Patient Seen: 10:10 Chief complaint: SDC Narrative: Meaghan is here for her colonoscopy. She is no significant changes in her health or symptoms since her last office visit. Patient History Medical History (Updated 05/17/22 @ 09:17 by YARI Hinkle) Abnormal Pap smear of cervix Anal fissure Anxiety Depression with anxiety HPV (human papilloma virus) infection Insomnia Left axillary pain Positive QuantiFERON-TB Gold test Prior complicated by SGA (small for gestational age), antepartum (spontaneous vaginal delivery) (~10/05/12) Tonsillith Surgical History H/O colposcopy with cervical biopsy (~2016) [place] teeth extracted (~2010) Family & Social History Family History Mother Diabetes mellitus Hypertension Alcoholism Psoriasis Father Hyperlipidemia Grandfather Unknown whether patient has any health problems Family estrangement Grandmother Unknown whether patient has any health problems Family estrangement Grandmother Cancer Lung cancer Grandfather Family estrangement Unknown whether patient has any health problems Social History: household members spouse,children Tobacco & Substance use: Smoking Status Never smoker alcohol intake former Substance Use Type does not use Meds Home Medications and Allergies Home Medications Medication Instructions Recorded Confirmed Type levonorgestrel 14 mcg/24 hrs (3 intrauterine 01/20/21 04/18/22 History yrs) 13.5 mg intrauterine device propranolol 10 mg tablet See Rx Instructions .Route 04/27/22 05/31/22 Rx .COMPLEX #90 tabs sodium,potassium,mag sulfates 17.5 See Rx Instructions PO .COMPLEX 04/30/22 Rx gram-3.13 gram-1.6 gram oral soln #354 mL (Suprep Bowel Prep Kit) duloxetine 20 mg capsule,delayed 20 mg PO DAILY #90 caps 05/17/22 05/31/22 Rx release Allergies Allergy/AdvReac Type Severity Reaction Status Date / Time No Known Allergies Allergy Uncoded 05/31/22 09:23 Exam Vital Signs (past 8 hours): - 05/31/22 09:25 Temperature 98.3 F Pulse Rate 69 Respiratory Rate 20 Blood Pressure 104/62 Pulse Oximetry 99 Oxygen Delivery Method Room Air Oxygen Delivery Method Room Air Const General: healthy appearing Assessment & Plan Assessment and plan (1) Anal fissure: Status: Resolved Plan Reviewed risks and benefits of colonoscopy she would like to proceed
--- NOTE | 2022-05-31 11:09 | PM.OP.COLON ---
Operative Date/Time/Diagnoses Date of procedure: 05/31/22 Time of procedure: 11:09 Pre-op diagnosis: Pruritus Ani Post-op diagnosis: same Procedure & Clinicians Study performed: Colonoscopy Same procedure as scheduled: Yes Surgeon: Gustavo Wolf Procedure Notes Procedure in detail: Surgeon: Gustavo Wolf MD Anesthesia: Dr. Wyatt Procedure: The patient was brought to the endoscopy suite, placed in left lateral decubitus position. The patient was connected to monitoring devices. A time-out was performed. Sedation was administered. Once the patient was adequately sedated, a digital rectal exam was performed and was normal. The scope was then inserted and advanced to the cecum where the appendiceal orifice was identified and photographed. The scope was then slowly withdrawn over greater than 6 minutes. The mucosa was thoroughly inspected. No abnormalities were seen. The scope was retroflexed in the rectum. No abnormalities were seen. The scope was straightened and removed. The patient was awakened and brought to recovery. Scope withdrawal time: 7 minutes Sedation time: 13 minutes EBL: 0 Findings: Normal colon Post-procedure Disposition: PACU
[2022-05-31 11:10] VITALS: BP 96/65; PULSE 72; RESP 21; TEMP 36.3; O2SAT 99
[2022-05-31 11:15] VITALS: BP 95/59; PULSE 69; RESP 22; O2SAT 98
[2022-05-31 11:21] VITALS: BP 106/65; PULSE 74; RESP 22; O2SAT 98
== END 2022-05-31 11:39 | disposition home or self-care (01) ==
PROVIDERS: PCP Nurse Practitioner; Referring Provider Surgery; Visit Provider Surgery
PROC: 0DJD8ZZ Inspection of Lower Intestinal Tract, Via Natural or Artificial Opening Endoscopic (ICD-10-PCS; CPT 45378; principal; 2022-05-31 10:15)
DX: L29.0 Pruritus ani (principal)
CPT/HCPCS: 45378; J2250; J3010

== ENCOUNTER → 2022-07-03 08:42 | Outpatient (CLI) | payer OTHER, SELFPAY ==
--- NOTE | 2022-07-03 08:43 | DI.US.S_ITS ---
ULTRASOUND OF RIGHT BREAST: 07/03/2022 CLINICAL: Palpable right breast lump. Comparison is made to exam dated: 07/03/2022 mammogram - [facility]. Real-time ultrasound of the right breast was performed. [place] scale images of the real-time examination were reviewed. No significant abnormalities were seen sonographically in the right breast. IMPRESSION: NEGATIVE There is no sonographic evidence of malignancy. There is no abnormality seen in the right breast to correspond with the area of clinical concern and palpable abnormality which likely represent normal fibroglandular tissue, however, recommend clinical follow up for persistent or worsening symptoms, or development of any clinically suspicious findings. Recommend initiating routine screening mammograms at age 40. Findings and recommendations were conveyed to the patient during today's evaluation. This exam was interpreted at Station ID: [id number]. Electronically Signed By: Ilir Brown M.D. aty/:07/03/2022 09:26:02 letter sent: Clinical Evaluation Ultrasound BI-RADS: 1 Negative
--- NOTE | 2022-07-03 08:43 | DI.MG.S_ITS ---
BILATERAL DIGITAL DIAGNOSTIC MAMMOGRAM 3D/2D: 07/03/2022 CLINICAL: Baseline exam. Right breast lump. No prior exams were available for comparison. Both breasts are extremely dense, which lowers the sensitivity of mammography (category d />75% glandular tissue). No significant masses, calcifications, or other findings are seen in either breast. IMPRESSION: INCOMPLETE: NEEDS ADDITIONAL IMAGING EVALUATION There is no abnormality seen in the right breast to correspond with the area of clinical concern and palpable abnormality indicated by triangular marker in the middle depth in the upper outer quadrant, however, an ultrasound is recommended for further evaluation and is scheduled to immediately follow this examination. Based on the Tyrer Cuzick model (a risk assessment model) the patient's lifetime risk is 9.9% and her 10 year risk is 0.5%. According to the ACR, ACS, and NCCN guidelines, an annual breast MRI exam along with mammogram is recommended if the patient's lifetime risk is 20% or greater. This exam was interpreted at Station ID: [id number]. NOTE: For mammograms, a report in lay terms will be sent to the patient. Approximately 15% of breast malignancies will not be visualized mammographically. In the management of a palpable breast mass, a negative mammogram must not discourage biopsy of a clinically suspicious lesion. Electronically Signed By: Ilir Brown M.D. aty/:07/03/2022 09:20:49 ACR BI-RADS Category 0: Incomplete [id number]
== END ==
PROVIDERS: PCP Nurse Practitioner; Referring Provider Nurse Practitioner; Visit Provider Nurse Practitioner
DX: N63.10 Unspecified lump in the right breast, unspecified quadrant (principal); R92.2 Inconclusive mammogram
CPT/HCPCS: 76642; 77066; G0279

== ENCOUNTER → 2022-09-10 11:21 | Outpatient (CLI) | payer OTHER, SELFPAY | PROVIDERS: PCP Nurse Practitioner; Visit Provider Nurse Practitioner | DX: N88.8 Other specified noninflammatory disorders of cervix uteri (principal); L81.8 Other specified disorders of pigmentation | CPT/HCPCS: 87070; 87205 ==

== ENCOUNTER → 2023-04-05 09:11 | Outpatient (CLI) | payer OTHER, SELFPAY ==
[2023-04-05 11:21] LABS: Add Manual Diff / Slide Review NO; Basophils Absolute Auto 0 /uL (0-100); Basophils Percent Auto 0.6 % (0-2); Eosinophils Absolute Auto 200 /uL (0-450); Eosinophils Percent Auto 4.6 % (2-4); Hematocrit 39.4 % (36-46); Hemoglobin 13.6 g/dL (12.0-16.0); Lymphocytes Absolute Auto 1500 /uL (1100-4500); Lymphocytes Percent Auto 29.7 % (25-40); Mean Corpuscular HGB Conc 34.6 % (30-36); Mean Corpuscular Hemoglobin 30.7 PG (26-34); Mean Corpuscular Volume 88.8 fL (80-100); Monocytes Absolute Auto 300 /uL (0-900); Monocytes Percent Auto 6.4 % (3-14); Neutrophils Absolute Auto 3000 /uL (1500-7000); Neutrophils Percent Auto 58.7 % (50-75); Platelet Count 210 X10^3/uL (150-400); Red Blood Cell Count 4.44 X10^6/uL (4.0-5.2); Red Cell Distribution Width 12.6 % (11.6-14.8); White Blood Cell Count 5.1 X10^3/uL (4.5-11.0)
[2023-04-05 11:47] LABS: Alanine Aminotransferase 22 IU/L (<35); Albumin 4.5 g/dL (3.5-5.0); Albumin Globulin Ratio 1.4 (1.0-2.8); Alkaline Phosphatase 38 U/L (38-126); Aspartate Aminotransferase 25 IU/L (14-36); BUN Creatinine Ratio 22.2 (6-22); Bilirubin Total 0.6 mg/dL (0.2-1.3); Blood Urea Nitrogen 14 mg/dL (7-17); Calcium 9.4 mg/dL (8.4-10.2); Carbon Dioxide 29 mmol/L (22-32); Chloride 99 mmol/L (98-107); Estimated Glomerular Filt Rate > 60 mL/min (>60); Globulin 3.3 g/dL (1.7-4.1); Glucose 110 mg/dL (70-100); HEMOLYSIS 19 (0-50); Potassium 4.1 mmol/L (3.4-5.1); Sodium 136 mmol/L (137-145); Total Protein 7.8 g/dL (6.3-8.2)
[2023-04-05 12:02] LABS: Free T4, Direct Thyroxine 0.91 ng/dL (0.78-2.19)
[2023-04-05 12:16] LABS: Thyroid Stimulating Hormone 1.43 uIU/mL (0.47-4.68)
== END ==
PROVIDERS: PCP Nurse Practitioner; Referring Provider Nurse Practitioner; Visit Provider Nurse Practitioner
DX: R63.5 Abnormal weight gain (principal); F32.A Depression, unspecified; R53.83 Other fatigue
CPT/HCPCS: 36415; 80053; 84439; 84443; 84481; 85025

== ENCOUNTER → 2023-06-28 14:56 | Outpatient (CLI) | payer OTHER, SELFPAY ==
[2023-06-28 16:08] LABS: Free T4, Direct Thyroxine 1.01 ng/dL (0.78-2.19)
[2023-06-28 16:21] LABS: Thyroid Stimulating Hormone 1.48 uIU/mL (0.47-4.68)
[2023-06-30 05:08] LABS: Thyroid Peroxidase Antibodies 77 IU/mL (0-34)
== END ==
PROVIDERS: PCP Nurse Practitioner; Referring Provider Nurse Practitioner; Visit Provider Nurse Practitioner
DX: R63.5 Abnormal weight gain (principal); F41.8 Other specified anxiety disorders; F41.0 Panic disorder [episodic paroxysmal anxiety]; R45.4 Irritability and anger; Z97.5 Presence of (intrauterine) contraceptive device; E28.2 Polycystic ovarian syndrome
CPT/HCPCS: 36415; 83002; 84439; 84443; 84481; 86376

== ENCOUNTER → 2023-07-12 06:45 | Outpatient (CLI) | payer OTHER, SELFPAY ==
--- NOTE | 2023-07-12 06:47 | DI.US.S_ITS ---
PROCEDURE: US PELVIC COMPLETE INDICATIONS: POSSIBLE PCOS TECHNIQUE: Real-time scanning was performed of the pelvic organs, with image documentation. Additional endovaginal scanning was necessary due to incomplete visualization of the adnexal and endometrial structures by transabdominal scanning. COMPARISON: None. FINDINGS: Uterus: Uterus is retroverted and normal in size at 7.6 x 5 x 5 cm. The myometrium is homogeneous. The endometrium measures 2.9 or mm combined thickness. IUD is appropriately position. Cervix and vagina are within normal limits. Ovaries: The right ovary measures 4.4 x 3.5 x 3.3 cm, with a calculated ovarian volume of 26.4 cc. Heterogeneous complex ovarian cyst measuring 3 x 3.1 x 2.2 cm with no significant internal vascularity. The left ovary measures 1.9 x 4.4 x 2.5 cm, with a calculated ovarian volume of 10.6 cc. Less than 12 follicles can be seen in each ovary. No adnexal masses are seen. Other: Small volume simple physiologic fluid. IMPRESSION: 1. IUD is appropriately position. Endometrial thickness is 2.9 mm. 2. Heterogeneous complex ovarian cyst measuring 3 x 3.1 x 2.2 cm, likely a hemorrhagic cyst. Recommend a short interval pelvic ultrasound. 3. Less than 12 follicles in the bilateral ovaries. We strive to produce accurate, complete, and clear reports of imaging services. To assist us in improving patient care, this report was composed using standard report templates and voice recognition software. Therefore, it may contain abnormal punctuation, insertions and/or omissions. Occasional wrong-word or sound-alike substitutions may occur. Though we review the report and make efforts to correct it, we do recommend that the report be read carefully in proper context to recognize any text inaccuracies. Dictated by: Denisa Smith M.D. on 07/12/2023 at 9:24 Approved by: Denisa Smith M.D. on 07/12/2023 at 10:54
[2023-07-16 23:21] LABS: Tissue Transglutaminase IgA <2 U/mL (0-3)
== END ==
PROVIDERS: PCP Nurse Practitioner; Referring Provider Nurse Practitioner; Visit Provider Nurse Practitioner
DX: E28.2 Polycystic ovarian syndrome (principal)
CPT/HCPCS: 36415; 76830; 76856; 83516

== ENCOUNTER → 2024-07-03 09:53 | Outpatient (CLI) | payer OTHER, SELFPAY ==
[2024-07-03 10:42] LABS: Alanine Aminotransferase 16 IU/L (<35); Albumin 4.6 g/dL (3.5-5.0); Albumin Globulin Ratio 1.7 (1.0-2.8); Alkaline Phosphatase 41 U/L (38-126); Aspartate Aminotransferase 25 IU/L (14-36); BUN Creatinine Ratio 15.6 (6-22); Bilirubin Total 0.9 mg/dL (0.2-1.3); Blood Urea Nitrogen 10 mg/dL (7-17); Calcium 9.3 mg/dL (8.4-10.2); Carbon Dioxide 24 mmol/L (22-32); Chloride 105 mmol/L (98-107); Cholesterol 172 mg/dL (140-199); Estimated Glomerular Filt Rate > 60 mL/min (>60); Globulin 2.7 g/dL (1.7-4.1); Glucose 90 mg/dL (70-99); HDL Cholesterol 62 mg/dL (40-60); HEMOLYSIS < 15 (0-50); LDL Cholesterol Calculated 94 mg/dL (<100); Potassium 4.6 mmol/L (3.4-5.1); Sodium 137 mmol/L (137-145); Total Protein 7.3 g/dL (6.3-8.2); Triglycerides 80 mg/dL (35-150)
[2024-07-03 11:11] LABS: TSH w/ Reflex to FT4 1.15 uIU/mL (0.47-4.68)
== END ==
PROVIDERS: PCP Family Medicine; Referring Provider Family Medicine; Visit Provider Family Medicine
DX: R76.8 Other specified abnormal immunological findings in serum (principal); F41.8 Other specified anxiety disorders; Z71.3 Dietary counseling and surveillance
CPT/HCPCS: 36415; 80053; 80061; 84443